=== PATIENT | female | born 2005 | race Caucasian/White ===

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

== ENCOUNTER 2024-11-22 07:23 | Emergency (ER) | payer BC, SELFPAY ==
[2024-11-22] VITALS (8 sets, daily range): BP systolic 113–158; BP diastolic 76–97; PULSE 97–127; RESP 20; TEMP 36.9–37; O2SAT 100
--- NOTE | 2024-11-22 07:38 | ED.GENADUL_ITS ---
Discharge Plan Disposition Patient Disposition: Home Condition: Stable Discharge Details Clinical Impression: N&V (nausea and vomiting) Primary Care Provider: Jaelyn Grewal ED Provider: Alexys Elam Home Meds and New Rx's Prescriptions: New ondansetron 4 mg tablet,disintegrating 4 mg PO Q8H PRN (Reason: nausea and vomiting) Qty: 30 0RF Continued Mirena 20 mcg/24 hours (6 yrs) 52 mg intrauterine device 1 device intrauterine ONCE Qty: 1 0RF albuterol sulfate [ProAir HFA] 90 mcg/actuation HFA aerosol inhaler 2 puff Inhalation Q4H PRN Qty: 1 4RF Rx Instructions: 2 puffs q4h prn cough/wheeze tretinoin 0.1 % cream 1 applic TP QHS Qty: 45 2RF Rx Instructions: Apply thin layer to face once at bedtime, wash off in the am. sertraline 25 mg tablet 25 - 75 mg PO DAILY Qty: 90 0RF Rx Instructions: Take 1 tablet daily for one week then increase to 2 tablets daily for one week then increase to 3 tablets daily ocrelizumab 30 mg/mL solution 300 mg IV ONCE Discharge Instructions Instructions: Nausea and Vomiting, Adult ED Additional Instructions: Follow-up with your primary care provider if not improving within a week If you feel more ill or have new symptoms such as severe abdominal pain or persistent vomiting despite the ondansetron return to the emergency department for reevaluation HPI General Mode of arrival: ambulatory . Date/Time Provider Initiated Documentation: 11/22/24 07:25 . Limitations to Documentation: no limitations . Information obtained by: patient . History of Present Illness 19 year old F presents to the emergency department with the chief complaint of n/v, described as moderate, Patient started experiencing this day(s) (1) and it has been constant. No relieving factors improve symptom(s), No exacerbating factors reported . Patient notes denies fever/chills. Patient did receive the following treatments prior to arrival, none Related Data Home Medications ?Medication ?Instructions ?Recorded ?Confirmed levonorgestrel 21 mcg/24 hr (up to 1 device intrauterine ONCE #1 ea 01/14/21 11/22/24 8 years) 52 mg intrauterine device (Mirena) albuterol sulfate 90 mcg/actuation 2 puff inhalation Q4H PRN ##1 07/01/21 11/22/24 aerosol inhaler (ProAir HFA) ocrelizumab 30 mg/mL intravenous 300 mg IV ONCE 10/11/24 11/22/24 solution sertraline 25 mg tablet 25 - 75 mg (1 - 3 x 25 mg) PO 11/01/24 11/22/24 DAILY #90 tabs tretinoin 0.1 % topical cream 1 applic topical QHS #45 grams 11/01/24 11/22/24 ondansetron 4 mg disintegrating 4 mg PO Q8H PRN nausea and 11/22/24 tablet vomiting #30 tabs Previous Rx's ?Medication ?Instructions ?Recorded levonorgestrel 21 mcg/24 hr (up to 1 device intrauterine ONCE #1 ea 01/14/21 8 years) 52 mg intrauterine device (Mirena) albuterol sulfate 90 mcg/actuation 2 puff inhalation Q4H PRN ##1 07/01/21 aerosol inhaler (ProAir HFA) sertraline 25 mg tablet 25 - 75 mg (1 - 3 x 25 mg) PO 11/01/24 DAILY #90 tabs tretinoin 0.1 % topical cream 1 applic topical QHS #45 grams 11/01/24 ondansetron 4 mg disintegrating 4 mg PO Q8H PRN nausea and 11/22/24 tablet vomiting #30 tabs Allergies Allergy/AdvReac Type Severity Reaction Status Date / Time No Known Allergies Allergy Verified 11/22/24 07:31 General Stated Complaint: Nausea/Vomit/Diar LAURA: 3 Review of Systems All systems reviewed & are unremarkable except as noted in HPI and below Constitutional Constitutional: Denies chills, Denies fever(s) and Denies weakness Cardiovascular Cardiovascular: Denies chest pain and Denies dyspnea Respiratory Respiratory: Denies cough and Denies dyspnea Gastrointestinal Gastrointestinal: Reports abdominal pain, Reports nausea and Reports vomiting Neurologic Neurologic: Denies weakness Exam Const Orientation: alert [facility] Head: normal to inspection Ears: external ears normal General nose exam: external nose normal Mouth: moist mucous membranes Eyes General: appearance normal, both eyes and all related structures Neck Neck: normal visual inspection Resp Effort & Inspection: normal respiratory effort and able to speak in complete sentences Cardio Rate: regular rate GI Palpation: soft and nontender Skin General skin exam: no rashes or lesions noted Neuro General: patient alert and patient oriented x3 Extrem General: normal to inspection Psych Mental Status: mental status grossly normal Course Vital Signs Vital signs: Vital Signs Temperature 36.9 C 11/22/24 07:26 Pulse 100 H 11/22/24 07:26 Respiratory Rate 20 11/22/24 07:26 Blood Pressure 158/97 H 11/22/24 07:26 Pulse Oximetry 100 11/22/24 07:26 Temperature 36.9 C 11/22/24 07:26 Pulse 100 H 11/22/24 07:26 Respiratory Rate 20 11/22/24 07:26 Blood Pressure 158/97 H 11/22/24 07:26 Pulse Oximetry 100 11/22/24 07:26 Oxygen Delivery Method Room Air 11/22/24 07:26 Oxygen Flow Rate 0 11/22/24 07:26 Medical Decision Making 19-year-old female who has a history of MS and gets injections of ocrelizumab at [facility] and had her last injection yesterday and has never had any issues comes in with nausea vomiting since last night and started for the migraine similar to prior migraines. She denies any severe headaches now, no significant abdominal pain although when she vomits she has some epigastric discomfort. Denies any fevers, holding a difficulty breathing, urinary symptoms. She is stable on arrival, she has a soft nontender abdomen, no CVA tenderness, ambulating with normal gait. I suspect either medication reaction versus started a gastroenteritis versus food illness. She has no abdominal tenderness to suggest surgical pathology. Will treat her symptoms with IV antiemetics and check a CBC, CMP and lipase and reassess. Given she has a history of migraines and her headache last night was in the rest of her life doubt hemorrhage do not feel imaging of her head indicated. No fevers no neck stiffness so doubt meningitis. Patient with a potassium of 3.0 but seems to be chronically low. Otherwise unremarkable lab work. She does have a contaminated urine sample but she denies any urinary symptoms so do not feel any repeat collection indicated. She is feeling much better and is sleeping on reassessment and awakens easily to voice. I suspect food illness versus the start of gastroenteritis. I will have her follow-up with her PCP if not improving and return precautions given. She has no abdominal pain so do not feel any imaging of her abdomen indicated and has no head pain. Differential Diagnosis Differential Diagnosis: Gastroenteritis, medication reaction, electrolyte abnormality Medical Records Medical records reviewed: Yes I reviewed the patient's medical records. Lab Data Lab results reviewed: Yes I reviewed the patient's lab results. Quality:SDOH Health Related Social Needs: No Data to Display PFSH All Active Problems (Updated 11/22/24 @ 09:21 by Alexys Elam MD) N&V (nausea and vomiting) (Acute) Multiple sclerosis (Chronic ~2019) followed by [facility] [place] Major depressive disorder (Chronic) Asthma (Chronic) IUD surveillance (Chronic) Mirena IUD placed 01/14/21 Medical History (Updated 11/22/24 @ 09:21 by Alexys Elam MD) Anorexia nervosa Surgical History (Updated 11/01/24 @ 14:54 by Jaelyn Grewal NP) S/P tonsillectomy and adenoidectomy Family History (Updated 11/02/24 @ 09:40 by Cris Mohan) Mother Depression Hypertension Father Hyperlipidemia Obesity Heart disease Hypertension Thyroid disease Sister , 27 from car accident Substance use disorder Asthma Depression Brother Alcohol use disorder Asthma Depression Substance use disorder Maternal Grandfather Parkinsons disease Prostate cancer Maternal Grandmother Diabetes Paternal Grandfather No problems noted. Paternal Grandmother No problems noted. Social History (Updated 11/02/24 @ 11:10 by Cris Mohan) Smoking/Tobacco Use Status: Current-Occasional Tobacco Type: e-cigarettes Tobacco: How many years used: 1 Quit status: has quit before Smoking risk assessment performed?: Yes Alcohol Intake: never Drug use: Occasionally Substance use type: marijuana Details: checked rx usage for more than intended 2-3/week but also checked never Adopted: No Caregiver/Support person: No Household members: significant other Housing: house Number of Children: 0 number of grandchildren: 0 Communication Needs: None Education Level: college Details: [employer] prerequisites for nursing school. 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 [employer] Sexually active: Yes Do you think of yourself as: straight/heterosexual Current gender identity: female What is your relationship status?: living with partner How often do you talk on the phone with friends or family?: three or more times per week How often do you get together with friends or relatives?: twice per week How often do you attend orthodox or restorationist services?: decline to answer Do you belong to any clubs or organized social groups?: no Panel score (0-1 are the most socially isolated patients): 2 NHANES result reviewed/action taken: Yes What type of physical activity do you participate in: walking, bicycling and other Details: hiking Duration: 30-45 minutes/day Frequency: daily Romelia/Mormon: Non caodaism Special romelia needs: No Seatbelt use: always Helmet use: Yes Helmet use: sometimes Drive intox or ride w/intox rolloff truck driver: No Firearms in home: Yes Firearms unloaded and locked: Yes Do you feel safe at home: Yes Do you feel safe in your relationship?: Yes Victim of physical abuse: No Victim of emotional abuse: No Victim of sexual abuse: No Would you like helpful sources: No Female Reproductive History Menstrual control method: progestin IUCD History History 0 Para Hx # Term Pregnancies Multiple births Hx # Pregnancies Ectopic pregnancies AB induced Hx Number of Living Children AB spontaneous
[2024-11-22] MEDS: Prochlorperazine 10 MG/2 ML VIAL IVP (08:13)
[2024-11-22] MEDS: Normal Saline 1,000 ML 1000 ML IV (08:14)
[2024-11-22 08:23] LABS: Abs Immature Grans 0.02 10^3/uL (0.0-0.06); Absolute Basophil Count 0.05 10^3/uL (0.0-0.2); Absolute Eosinophil Count 0.01 10^3/uL (0.0-0.7); Absolute Lymphocyte Count 0.17 10^3/uL (1.2-3.4); Absolute Monocyte Count 0.32 10^3/uL (0.1-0.8); Absolute Neutrophil Count 7.42 10^3/uL (1.2-6.7); Basophils % 0.6 %; Eosinophils % 0.1 %; HCT 45.6 % (36.0-46.0); HGB 14.9 g/dL (11.2-15.7); Immature Grans % 0.3 %; Lymphocytes % 2.1 %; MCHC 32.7 % (32.0-36.0); MCV 79 fL (80-95); MPV 9.3 fL (8.0-11.0); Neutrophils % 92.9 %; Platelet Count 290 10^3/uL (130-400); RBC 5.74 10^6/uL (3.93-5.22); RDW 13.6 % (11.7-14.6); RDW-SD 38.8 fL; WBC 7.99 10^3/uL (4.4-10.8)
[2024-11-22 08:53] LABS: ALT 22 U/L (14-59); AST 19 U/L (15-37); Albumin 4.1 g/dL (3.4-5.0); Alkaline Phosphatase 67 U/L (46-116); Anion Gap 9.2 mmol/L (3-11); BUN 18 mg/dL (7-18); Bilirubin, Total 0.87 mg/dL (0.2-1.0); CO2 31.8 mmol/L (21.0-32.0); CREATININE 1.1 mg/dL (0.55-1.02); Calcium 8.9 mg/dL (8.5-10.1); Chloride 100 mmol/L (98-107); Estimated GFR 73.77 (mL/min/1.73m2); Glucose 92 mg/dL (74-106); Lipase 25 U/L (<78); Magnesium 1.8 mg/dL (1.8-2.4); Sodium 141 mmol/L (136-145); Total Protein 7.1 g/dL (6.4-8.2)
[2024-11-22 09:00] LABS: Bilirubin Negative (Negative); Blood Trace-intact (Negative); Clarity Sl Cloudy (Clear); Glucose Negative (Negative); Ketones Negative (Negative); Leukocyte Esterase Small (Negative); Nitrite Negative (Negative); Specific Gravity >= 1.030 (1.005-1.025); Urobilinogen 0.2 mg/dL (Up to 0.2)
[2024-11-22 09:04] LABS: HCG Qual (Serum) Negative
[2024-11-22 09:15] LABS: Bacteria Many HPF (Negative); Epithelial Cells Many HPF (Negative); Other Cells Negative (Negative); WBC >50 HPF (0-5)
[2024-11-22 09:16] LABS: C & S Indicated? No/Sq. Contamination; Casts Negative LPF (Negative); Crystals Many Calcium Oxalate HPF (Negative); Mucus Heavy (Negative)
== END 2024-11-22 09:55 | disposition home or self-care (01) ==
PROVIDERS: Emergency Provider Emergency Medicine; PCP Nurse Practitioner Family
DX: R11.2 Nausea with vomiting, unspecified (principal); G35 Multiple sclerosis; F17.290 Nicotine dependence, other tobacco product, uncomplicated; Z79.899 Other long term (current) drug therapy
CPT/HCPCS: 36415; 80053; 83690; 96361; 96374; 99284; 81003; 81015; 83735; 84703; 85025; J0780

== ENCOUNTER 2024-12-14 11:47 | Emergency (ER) | payer BC, SELFPAY ==
--- NOTE | 2024-12-14 11:45 | RT.EKG_ITS ---
APPROVED REPORT Exam: Resting ECG Reason for Exam: syncope Patient Location: E HR:94 bpm ECG Measurements Heart Rate 94 AXIS PA 113 P 63 QRSd 72 QRS 72 QT 364 T 14 QTc 456 Conclusion Sinus rhythm. 94 normal axis no stemi
[2024-12-14 11:55] VITALS: BP 123/81; PULSE 83; RESP 15; TEMP 36.7; O2SAT 99
--- NOTE | 2024-12-14 12:15 | DI.RAD_ITS ---
Exam(s) XR KNEE RT 4V AP,LAT,DIANNA,PAT EXAM: XR KNEE RT 4V AP,LAT,DIANNA,PAT CLINICAL HISTORY: Fall onto knee. TECHNIQUE: 2D digital imaging was performed of the right knee. Four views obtained. Merchant, AP, la teral and PA tunnel views were obtained. COMPARISON: No priors for comparison. FINDINGS: BONES: No acute fracture is present. No bony destructive lesion is seen. JOINTS: The knee is normally aligned. No joint effusion is seen. SOFT TISSUE: Normal. IMPRESSION: Unremarkable radiographs of the right knee. DATA REPOSITORY: RADIATION DOSE DELIVERED:
--- NOTE | 2024-12-14 12:28 | W.ED.GENAD ---
Discharge Plan Disposition Patient Disposition: Home Condition: Stable Discharge Details Clinical Impression: Right knee sprain Primary Care Provider: Jaelyn Grewal ED Provider: Radha Bay Home Meds and New Rx's Prescriptions: Continued Mirena 20 mcg/24 hours (6 yrs) 52 mg intrauterine device 1 device intrauterine ONCE Qty: 1 0RF albuterol sulfate [ProAir HFA] 90 mcg/actuation HFA aerosol inhaler 2 puff Inhalation Q4H PRN Qty: 1 4RF Rx Instructions: 2 puffs q4h prn cough/wheeze tretinoin 0.1 % cream 1 applic TP QHS Qty: 45 2RF Rx Instructions: Apply thin layer to face once at bedtime, wash off in the am. sertraline 25 mg tablet 25 - 75 mg PO DAILY Qty: 90 0RF Rx Instructions: Take 1 tablet daily for one week then increase to 2 tablets daily for one week then increase to 3 tablets daily ocrelizumab 30 mg/mL solution 300 mg IV ONCE ondansetron 4 mg tablet,disintegrating 4 mg PO Q8H PRN (Reason: nausea and vomiting) Qty: 30 0RF Discharge Instructions Instructions: Knee Sprain ED Additional Instructions: No evidence of fracture at this time however you could have a mild to moderate sprain. Please wear the knee brace as needed for comfort. Rest ice compression elevation. Please take Tylenol or Ibuprofen with food every 4-6 hours as needed for pain and swelling. If continued pain you may follow-up with orthopedics or your primary care provider in the next 1 to 2 weeks. Follow up with primary care provider in 3-5 days. Return to ED sooner if any worsening or concerns. Thank you for allowing us to care for you today. Referrals: Jaelyn Grewal, [facility] [Primary Care Provider] - 1 week HPI General Mode of arrival: ambulatory. Date/Time Provider Initiated Documentation: 12/14/24 11:58. Limitations to Documentation: no limitations. Information obtained by: patient, RN notes reviewed and old records reviewed. HPI Narrative: 19-year-old female presents to the ER with chief complaint of right 7 out of 10 knee pain after couple of falls over the last month. Patient reports few days ago she slipped on the ice landing on her right knee. She also reports left knee years she became dizzy and lightheaded and was going to the bathroom when she apparently lost consciousness falling on the ground. Ever since then she has had some increased pain with knee flexion mostly to the posterior popliteal fossa. She has no obvious deformity noted on exam. She reports she tried to run yesterday and she had increased pain. She does have a past medical history of anorexia. She denies any chest pain dizziness lightheadedness at this time. EKG was performed by ED staff upon arrival which was within normal limits. Related Data Home Medications ?Medication ?Instructions ?Recorded ?Confirmed levonorgestrel 21 mcg/24 hr (up to 1 device intrauterine ONCE #1 ea 01/14/21 12/14/24 8 years) 52 mg intrauterine device (Mirena) albuterol sulfate 90 mcg/actuation 2 puff inhalation Q4H PRN ##1 07/01/21 12/14/24 aerosol inhaler (ProAir HFA) ocrelizumab 30 mg/mL intravenous 300 mg IV ONCE 10/11/24 12/14/24 solution sertraline 25 mg tablet 25 - 75 mg (1 - 3 x 25 mg) PO 11/01/24 12/14/24 DAILY #90 tabs tretinoin 0.1 % topical cream 1 applic topical QHS #45 grams 11/01/24 12/14/24 ondansetron 4 mg disintegrating 4 mg PO Q8H PRN nausea and 11/22/24 12/14/24 tablet vomiting #30 tabs Previous Rx's ?Medication ?Instructions ?Recorded levonorgestrel 21 mcg/24 hr (up to 1 device intrauterine ONCE #1 ea 01/14/21 8 years) 52 mg intrauterine device (Mirena) albuterol sulfate 90 mcg/actuation 2 puff inhalation Q4H PRN ##1 07/01/21 aerosol inhaler (ProAir HFA) sertraline 25 mg tablet 25 - 75 mg (1 - 3 x 25 mg) PO 11/01/24 DAILY #90 tabs tretinoin 0.1 % topical cream 1 applic topical QHS #45 grams 11/01/24 ondansetron 4 mg disintegrating 4 mg PO Q8H PRN nausea and 11/22/24 tablet vomiting #30 tabs Allergies Allergy/AdvReac Type Severity Reaction Status Date / Time No Known Allergies Allergy Verified 12/14/24 11:59 General Stated Complaint: Orthopedic LAURA: 4 Review of Systems Musculoskeletal Musculoskeletal: Reports as per HPI, Reports arthralgias and Reports limited range of motion (Due to pain) Exam Narrative Exam Narrative: Constitutional: Alert and oriented x3. Appears stated age. Thin body habitus. Head: Normocephalic, no trauma. Eyes: Pupils PERRL, Red reflex noted, EOM's intact. Eyelids symmetrical without lesions, discharge, or swelling. ENT: Bilateral TM's WNL, External ear normal to inspection, no mastoid TTP, swelling, or erythema, Nasal turbinates WNL, no nasal discharge. Normal dentition, Posterior pharynx WNL, no exudate. Chest: RRR, Normal S1, S2, distal pulses intact. Resp: Lungs clear to auscultation bilaterally, no wheezes, rales, or rhonchi. Abdomen: Soft, non-distended, Normoactive bowel sounds all 4 quads. Musculoskeletal: Normal gait, Moves all 4 extremities without difficulty. Skin: No suspicious rashes or lesions. Capillary refill less than 2 sec. Neurologic: Cranial nerves II-XII intact. Alert and oriented x 3. Motor: No deficits noted. Sensory: Intact bilaterally all 4 extremities. Hematologic/Lymphatic: No ecchymosis, no lymphadenopathy. Const General: cooperative, healthy appearing, comfortable, well developed and well groomed Nutritional Appearance: thin Orientation: alert, awake and oriented x3 Extrem General: normal to inspection Right lower extremity: normal to inspection, normal capillary refill, no joint enlargement and knee Details: normal to inspection, tenderness and knee ligament exam normal; no swelling, no crepitus, no deformity and no unusual warmth Course Vital Signs Vital signs: Vital Signs Temperature 36.7 C 12/14/24 11:55 Pulse 83 12/14/24 11:55 Respiratory Rate 15 12/14/24 11:55 Blood Pressure 123/81 12/14/24 11:55 Pulse Oximetry 99 12/14/24 11:55 Temperature 36.7 C 12/14/24 11:55 Pulse 83 12/14/24 11:55 Respiratory Rate 15 12/14/24 11:55 Blood Pressure 123/81 12/14/24 11:55 Blood Pressure Position Sitting 12/14/24 11:55 Pulse Oximetry 99 12/14/24 11:55 Oxygen Delivery Method Room Air 12/14/24 11:55 Oxygen Flow Rate 0 12/14/24 11:55 Medical Decision Making 19-year-old female presents to the ER with chief complaint of right 7 out of 10 knee pain after couple of falls over the last month. Patient reports few days ago she slipped on the ice landing on her right knee. She also reports left knee years she became dizzy and lightheaded and was going to the bathroom when she apparently lost consciousness falling on the ground. Ever since then she has had some increased pain with knee flexion mostly to the posterior popliteal fossa. She has no obvious deformity noted on exam. She reports she tried to run yesterday and she had increased pain. She does have a past medical history of anorexia. She denies any chest pain dizziness lightheadedness at this time. EKG was performed by ED staff upon arrival which was within normal limits. 4 view x-ray of right knee ordered, X-ray within normal limits, will place in a hinged knee brace and discharge home with RICE procedures. Follow-up if continued worsening pain. This text was generated using [employer] dictation system, please disregard any oddities of phrase or misspellings. Medical Records Medical records reviewed: Yes I reviewed the patient's medical records. Imaging Data Radiologic Study: Imaging: X-Ray Radiologist's impression: EXAM: XR KNEE RT 4V AP,LAT,DIANNA,PAT CLINICAL HISTORY: Fall onto knee. TECHNIQUE: 2D digital imaging was performed of the right knee. Four views obtained. Merchant, AP, lateral and PA tunnel views were obtained. COMPARISON: No priors for comparison. FINDINGS: BONES: No acute fracture is present. No bony destructive lesion is seen. JOINTS: The knee is normally aligned. No joint effusion is seen. SOFT TISSUE: Normal. IMPRESSION: Unremarkable radiographs of the right knee. Quality:SDOH Health Related Social Needs: No Data to Display PFSH All Active Problems (Updated 12/14/24 @ 13:37 by Radha Bay NP) Right knee sprain (Acute) N&V (nausea and vomiting) (Acute) Multiple sclerosis (Chronic ~2019) [place] by [facility] [place] [facility] Major depressive disorder (Chronic) Asthma (Chronic) IUD surveillance (Chronic) Mirena IUD placed 01/14/21 Medical History Anorexia nervosa Surgical History S/P tonsillectomy and adenoidectomy Family History Mother Depression Hypertension Father Hyperlipidemia Obesity Heart disease Hypertension Thyroid disease Sister , 27 from car accident Substance use disorder Asthma Depression Brother Alcohol use disorder Asthma Depression Substance use disorder Maternal Grandfather Parkinsons disease Prostate cancer Maternal Grandmother Diabetes Paternal Grandfather No problems noted. Paternal Grandmother No problems noted. Social History Smoking/Tobacco Use Status: Current-Occasional Tobacco Type: e-cigarettes Tobacco: How many years used: 1 Quit status: has quit before Smoking risk assessment performed?: Yes Alcohol Intake: never Drug use: Occasionally Substance use type: marijuana Details: checked rx usage for more than intended 2-3/week but also checked never Adopted: No Caregiver/Support person: No Household members: significant other Housing: house Number of Children: 0 number of grandchildren: 0 Communication Needs: None Education Level: college Details: [employer] prerequisites for nursing school. 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 [employer] Sexually active: Yes Do you think of yourself as: straight/heterosexual Current gender identity: female What is your relationship status?: living with partner How often do you talk on the phone with friends or family?: three or more times per week How often do you get together with friends or relatives?: twice per week How often do you attend buddhism or yazidi services?: decline to answer Do you belong to any clubs or organized social groups?: no Panel score (0-1 are the most socially isolated patients): 2 NHANES result reviewed/action taken: Yes What type of physical activity do you participate in: walking, bicycling and other Details: hiking Duration: 30-45 minutes/day Frequency: daily Romelia/Jehovah'S Witness: Non zoroastrianism Special romelia needs: No Seatbelt use: always Helmet use: Yes Helmet use: sometimes Drive intox or ride w/intox intermodal truck driver: No Firearms in home: Yes Firearms unloaded and locked: Yes Do you feel safe at home: Yes Do you feel safe in your relationship?: Yes Victim of physical abuse: No Victim of emotional abuse: No Victim of sexual abuse: No Would you like helpful sources: No Female Reproductive History Menstrual control method: progestin IUCD History History 0 Para Hx # Term Pregnancies Multiple births Hx # Pregnancies Ectopic pregnancies AB induced Hx Number of Living Children AB spontaneous
[2024-12-14 13:48] VITALS: BP 120/64; PULSE 77; RESP 16; O2SAT 100
== END 2024-12-14 13:49 | disposition home or self-care (01) ==
PROVIDERS: Emergency Provider Registered Nurse Emergency; PCP Nurse Practitioner Family
DX: S83.91XA Sprain of unspecified site of right knee, initial encounter (principal); W00.0XXA Fall on same level due to ice and snow, initial encounter; F17.290 Nicotine dependence, other tobacco product, uncomplicated; Y93.01 Activity, walking, marching and hiking
CPT/HCPCS: 93005; 99283; 73564; 93010

== ENCOUNTER 2024-12-25 15:40 | Outpatient (CLI) | payer BC, SELFPAY ==
--- NOTE | 2024-12-25 14:45 | DI.RAD_ITS ---
Exam(s) XR FOOT RT COMPLETE EXAM: XR FOOT RT COMPLETE CLINICAL HISTORY: right foot pain. TECHNIQUE: 2D digital imaging was performed. Three views. COMPARISON: CR XR FOOT RT LIMITED from 10/30/2019 FINDINGS: BONES: No acute fracture is present. No bony destructive lesion is seen. Arm a dorsal spurs again no ara at the base of the 2nd metatarsal. JOINTS: No dislocation present. SOFT TISSUE: Normal. IMPRESSION: No acute abnormality. DATA REPOSITORY: RADIATION DOSE DELIVERED:
== END 2024-12-25 15:41 | disposition home or self-care (01) ==
LOC: DIORS 15:40
PROVIDERS: PCP Nurse Practitioner Family; Visit Provider Physician Assistant
DX: M79.671 Pain in right foot (principal)
CPT/HCPCS: 73630

== ENCOUNTER 2025-01-18 09:01 | Outpatient (CLI) | payer BC, SELFPAY ==
--- NOTE | 2025-01-18 08:30 | DI.RAD_ITS ---
Exam(s) XR FOOT RT COMPLETE EXAM: XR FOOT RT COMPLETE CLINICAL HISTORY: FOREIGN BODY RIGHT FOOT S90.851A. TECHNIQUE: 2D digital imaging was performed. Three views. COMPARISON: CR XR FOOT RT COMPLETE from 12/25/2024 FINDINGS: BONES: No acute fracture is present. No bony destructive lesion is seen. Of spur from the dorsal asp ect of the 2nd metatarsal. JOINTS: No dislocation present. SOFT TISSUE: Normal. No visible foreign body. No abnormal gas collection. IMPRESSION: Unremarkable radiographs of the right foot. DATA REPOSITORY: RADIATION DOSE DELIVERED:
== END 2025-01-18 09:21 ==
LOC: DI 09:02
PROVIDERS: PCP Nurse Practitioner Family; Visit Provider Student in an Organized Health Care Education/Training Program
DX: S90.851A Superficial foreign body, right foot, initial encounter (principal); X58.XXXA Exposure to other specified factors, initial encounter
CPT/HCPCS: 73630

== ENCOUNTER 2025-06-16 23:23 | Emergency (ER) | payer BC, SELFPAY ==
--- NOTE | 2025-06-16 00:58 | DI.CT_ITS ---
Exam(s) CT ABDOMEN PELVIS W EXAM: CT ABDOMEN PELVIS W CLINICAL HISTORY: LLQ pain, eval for cyst. TECHNIQUE: Imaging Protocol: Axial computed tomography images with coronal and sagittal reformatted images were created and reviewed CONTRAST MATERIAL: Intravenous: Omnipaque-350 75cc Oral: None COMPARISON: CT CT ABDOMEN PELVIS W from 09/18/2020 FINDINGS: VISUALIZED LUNG BASES: No nodules nor pleural effusions evident. ABDOMEN: There is no ascites. LIVER: There are no focal hepatic lesions evident. No dilated intrahepatic ducts. GALLBLADDER/BILIARY: No obvious gallbladder pathology. CBD is not dilated. PANCREAS: No evidence of pancreatic mass nor dilatation of the pancreatic duct. SPLEEN: Spleen is not enlarged. No obvious intrasplenic lesions. Splenic and portal veins are patent. ADRENALS: There are no significant adrenal masses. KIDNEYS:No cysts evident. No solid renal masses. No calculi nor hydronephrosis.. ABDOMINAL AORTA: Abdominal aorta is not enlarged. LYMPH NODES:There is no retroperitoneal nor paraaortic adenopathy. ABDOMINAL WALL: No evidence of significant anterior abdominal wall nor inguinal hernia. Umbilical ornament again noted. There is no evidence of abscess nor hernia at this level. GI: There is no evidence of bowel obstruction, free air, nor abscess. There is abundant fecal material and fluid in the colon from the cecum to the level of the upper sigmoid. The remainder of the sigmoid and rectosigmoid are filled with air. PELVIS: GI: There is no evidence of obvious appendicitis.There is no significant sigmoid diverticular disease. LYMPH NODES: There is no intrapelvic nor inguinal adenopathy. REPRODUCTIVE: There is an IUD now evident in the endometrial canal of the uterus. This appears to be in satisfactory position within the anteverted uterus. There are no significant ovarian masses. There is a very small amount of free fluid in the dependent aspect of the [id number]-flr-rv-sac region. This may be female physiologic. No evidence of abscess. URINARY BLADDER: No calculi nor obvious masses evident OSSEOUS: No fractures and no significant osseous lesions. The sacroiliac joints appear unremarkable. IMPRESSION: 1. Compared to the prior abdominal CT scan of September 2020 there has been interval placement of than intrauterine contraceptive device. IUD appears to be in satisfactory position within the endometrial canal of the anteverted uterus. There are no abnormal adnexal masses. There is a small amount of free fluid in the cul-de-sac which is probably female physiologic. 2. There is fluid and fecal material distending most of the colon but not the sigmoid (which is the air-gas filled). There is no obvious colitis pattern. No evidence of appendicitis nor diverticulitis. Preliminary virtual Radiology report was reviewed RADIATION DOSE DELIVERED: 273.02mGy.cm Total DLP DATA REPOSITORY: All CT scans at this facility are submitted to the National Radiology Data Registry (NRDR) Dose Index Registry (DIR) with the [employer] (ACR). RADIATION OPTIMIZATION: All CT scans at this facility use at least one of these dose optimization techniques: automated exposure control; mA and/or kV adjustment per patient size (includes targeted exams where dose is matched to clinical indication); or iterative reconstruction.
[2025-06-16 23:26] VITALS: BP 106/67; PULSE 101; RESP 20; TEMP 36.9; O2SAT 100
[2025-06-16 23:29] VITALS: BP 106/67; PULSE 101; RESP 20; TEMP 36.9; O2SAT 100
[2025-06-16 23:31] VITALS: BP 100/75; PULSE 98
[2025-06-16 23:32] VITALS: PULSE 97; O2SAT 99
--- NOTE | 2025-06-16 23:37 | W.ED.GENAD ---
Discharge Plan Disposition Patient Disposition: Home Discharge Details Clinical Impression: Constipation, Abdominal cramping Primary Care Provider: Jaelyn Grewal ED Provider: Kaiden Mijares Home Meds and New Rx's Prescriptions: New potassium chloride 40 mEq/15 mL liquid 20 meq PO DAILY 7 Days Qty: 52.5 0RF docusate sodium [Colace] 100 mg capsule 100 mg PO DAILY Qty: 30 0RF No Action Mirena 20 mcg/24 hours (6 yrs) 52 mg intrauterine device 1 device intrauterine ONCE Qty: 1 0RF albuterol sulfate [ProAir HFA] 90 mcg/actuation HFA aerosol inhaler 2 puff Inhalation Q4H PRN Qty: 1 4RF Rx Instructions: 2 puffs q4h prn cough/wheeze ocrelizumab 30 mg/mL solution 300 mg IV ONCE ondansetron 4 mg tablet,disintegrating 4 mg PO Q8H PRN (Reason: nausea and vomiting) Qty: 30 0RF Discharge Instructions Instructions: Constipation in adults, Hypokalemia Additional Instructions: At this time your workup has shown 3 different pain entities. 1) you had notable constipation and stool burden in your intestines which is likely causing your cramping and pain. Please make sure you are drinking 10 to 12 cups of water or electrolyte solution every day. To help relieve the constipation 1 option is taking a full bottle of magnesium citrate, followed by 5 to 6 cups of water or more preferably electrolyte solution. This will cause significant cramping, but should help you produce a bowel movement. Additionally, please take a daily Colace with 2 to 3 cups of water every day when you take it to help maintain good stool softeners. 2) your potassium level was also notably low. We have helped improve your potassium level here through IV potassium, but have also sent a prescription for potassium for home use for the next week. Please stick with a high potassium diet as best you can to prevent this in the future. 3) your kidney function is also been getting slightly worse as time has gone on. This is likely a reflection of dehydration, but can also be made worse by ibuprofen use, or other chronic diseases. Please follow-up closely with primary care provider for reassessment of your kidney function and continued monitoring. If you notice any worsening of your symptoms, or any new symptoms such as vomiting, diarrhea, fever, chills, shortness of breath, chest pain, numbness, weakness, or fainting , please return immediately to the emergency department for reevaluation. Please follow up with your primary care provider as soon as possible for reassessment and reevaluation. As always, it was a pleasure participating in your medical care today. Referrals: Jaelyn Grewal NP [Primary Care Provider, Medicine] HPI General Date/Time Provider Initiated Documentation: 06/16/25 23:27. HPI Narrative: This is a pleasant 19-year-old female with past medical history of multiple sclerosis on ocrelizumab, asthma, intrauterine device use with levonorgestrel who presents today for evaluation of left lower quadrant abdominal pain. Patient states that the pain began 7 hours ago, it is constant in nature but comes and goes in severity oscillating from around a 3 to a 10. This transition is gradual and not sudden. She has nausea but no vomiting. Last bowel movement was 2 days ago which is quite normal for her. She denies any vaginal discharge, vaginal bleeding, or dysuria. No fever or chills. No other complaints at this time. Related Data Home Medications ?Medication ?Instructions ?Recorded ?Confirmed levonorgestrel (Mirena) 1 device intrauterine ONCE #1 ea 01/14/21 06/16/25 albuterol sulfate 90 mcg/actuation 2 puff inhalation Q4H PRN ##1 07/01/21 06/16/25 aerosol inhaler (ProAir HFA) ocrelizumab 30 mg/mL intravenous 300 mg IV ONCE 10/11/24 06/16/25 solution ondansetron 4 mg disintegrating 4 mg PO Q8H PRN nausea and 11/22/24 06/16/25 tablet vomiting #30 tabs docusate sodium 100 mg capsule 100 mg PO DAILY #30 caps 06/17/25 (Colace) potassium chloride 40 mEq/15 mL 20 meq (7.5 mL) PO DAILY 7 days 06/17/25 oral liquid #52.5 mL Previous Rx's ?Medication ?Instructions ?Recorded levonorgestrel (Mirena) 1 device intrauterine ONCE #1 ea 01/14/21 albuterol sulfate 90 mcg/actuation 2 puff inhalation Q4H PRN ##1 07/01/21 aerosol inhaler (ProAir HFA) ondansetron 4 mg disintegrating 4 mg PO Q8H PRN nausea and 11/22/24 tablet vomiting #30 tabs docusate sodium 100 mg capsule 100 mg PO DAILY #30 caps 06/17/25 (Colace) potassium chloride 40 mEq/15 mL 20 meq (7.5 mL) PO DAILY 7 days 06/17/25 oral liquid #52.5 mL Allergies Allergy/AdvReac Type Severity Reaction Status Date / Time No Known Allergies Allergy Verified 06/16/25 23:32 General Stated Complaint: Abd Prob LAURA: 3 Exam Narrative Exam Narrative: 1.Const: Well-nourished, Well-developed, appearing stated age 2.Eyes: PERRL, no conjunctival injection, and symmetrical lids. 3.ENT: Atraumatic external nose and ears. Moist MM. Neck: Symmetric, trachea midline, No thyromegaly. 4.CVS: +S1/S2, Peripheral pulses 2+ and equal in all extremities. Brisk capillary refill in all extremities. 5.RESP: Unlabored respiratory effort. Clear to auscultation bilaterally. No wheezes rales or rhonchi 6.GI: Soft, notable left lower quadrant tenderness. Palpation of the right lower quadrant elicits pain in the left lower quadrant. No focal pain at McBurney's point otherwise, negative Cadet sign. Negative heel strike test. 7.MSK: Normocephalic/Atraumatic, Extremities w/o deformity or ttp No cyanosis or clubbing, Normal movement of all extremities 8.Skin: Warm, Dry. No rashes or lesions. 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 Sensation grossly intact, no focal neurologic deficits. 10.Psych: (AAO) x3. Appropriate mood and affect Course Vital Signs Vital signs: Vital Signs Temperature 36.9 C 06/16/25 23:26 Pulse 101 H 06/16/25 23:26 Respiratory Rate 20 06/16/25 23:26 Blood Pressure 106/67 06/16/25 23:26 Pulse Oximetry 100 06/16/25 23:26 Temperature 36.9 C 06/16/25 23:29 Temperature Source Temporal Artery Scan 06/16/25 23:29 Pulse 101 H 06/16/25 23:29 Respiratory Rate 20 06/16/25 23:29 Blood Pressure 106/67 06/16/25 23:29 Blood Pressure Position Supine 06/16/25 23:29 Pulse Oximetry 100 06/16/25 23:29 Oxygen Delivery Method Room Air 06/16/25 23:29 Oxygen Flow Rate 0 06/16/25 23:26 Pain Level 9 06/16/25 23:29 Medical Decision Making This is a pleasant 19-year-old female with past medical history of multiple sclerosis on ocrelizumab, asthma, intrauterine device use with levonorgestrel who presents today for evaluation of left lower quadrant abdominal pain. Patient states that the pain began 7 hours ago, it is constant in nature but comes and goes in severity oscillating from around a 3 to a 10. This transition is gradual and not sudden. She has nausea but no vomiting. Last bowel movement was 2 days ago which is quite normal for her. She denies any vaginal discharge, vaginal bleeding, or dysuria. No fever or chills. No other complaints at this time. Exam demonstrates notable left lower quadrant tenderness, no flank or CVA tenderness. Negative heel strike test. Differential is high for ovarian cyst. Torsion seems less likely given the nature of the symptoms. We will treat the patient's pain, rehydrate, get CT imaging as no ultrasonography is available at this time. We will monitor closely and reassess. 2:13 AM Laboratory workup shows no significant white count bandemia or left shift. Heart rate has improved after fluids. Electrolytes demonstrate a low potassium at 2.7, with a creatinine of 1.2. Additionally there is a mild decline in her GFR, currently at 66. Lipase is normal, urinalysis shows no infection. I did discuss with her her slightly decreasing renal function. She will follow-up closely with a primary care provider in regards to this. Uncertain as to the cause, but I do recommend avoidance of ibuprofen. On reassessment the patient is feeling improved. Cramping and spasms is notably diminished. CT scan shows evidence of moderate amount of stool in the cecum ascending colon and transverse colon. No other evidence of significant acute process otherwise. The improvement of the patient's pain, but I see no evidence to suggest an acute surgical abdomen. With the patient's low potassium of 2.7 in the setting of a normal magnesium we did give 20 mEq of IV potassium. We will additionally give a prescription for home as well. We did discuss risks and benefits of magnesium citrate for the patient's notable stool content, and she would like to trial oral citrate at home. Patient otherwise feels stable for home. Recommend continued hydration at home. Discussed red flags for which to return. I have extensively reviewed the treatment plan and discharge instructions with the patient. I have addressed all patient concerns at this time. The patient was made aware of what symptoms to monitor for that would warrant a return to the emergency department. Discussed the plan with the patient, they demonstrate verbal understanding and agreement with our assessment and plan at this time. The documentation in this chart was dictated using Learning [employer] dictation software. Please excuse any dictation errors. Intraperitoneal space: Trace fluid in the deep pelvis. No free air. Vasculature: Normal caliber abdominal aorta. Lymph nodes: No pathologically enlarged mesenteric, retroperitoneal, or pelvic sidewall lymph nodes. Urinary bladder: Normal appearing urinary bladder. Reproductive: Anteverted uterus, partially obscured but normal in size. T-shaped intrauterine device in-situ. Ovaries largely obscured and not well evaluated but not grossly enlarged. Bones/joints: No acute fracture seen among the bones of the abdomen or pelvis. Angulation of the sacrum through the S5 segment in keeping with an old tailbone fracture. Soft tissues: No significant ventral or inguinal hernia. IMPRESSION: 1. Fluid and fecal material moderately distending the cecum, ascending colon, transverse colon, and descending colon suggesting diarrhea or impending diarrhea. Clinical correlation recommended. No evidence of diverticulitis or colitis. 2. Trace fluid in the deep pelvis in the cul-de-sac of Damon. Ovaries partially obscured and not well evaluated but grossly normal in size. Thank you for allowing us to participate in the care of your patient. Dictated and Authenticated by: Leo Nails MD 06/17/2025 1:50 AM Eastern Time ([place] & [place]) [facility] All Active Problems (Updated 06/17/25 @ 02:19 by Kaiden Mijares DO) Abdominal cramping (Acute) Constipation (Acute) Multiple sclerosis (Chronic ~2019) followed by [facility] [place] [facility] Major depressive disorder (Chronic) Asthma (Chronic) IUD surveillance (Chronic) Mirena IUD placed 01/14/21 Medical History Anorexia nervosa Surgical History S/P tonsillectomy and adenoidectomy Family History Mother Depression Hypertension Father Hyperlipidemia Obesity Heart disease Hypertension Thyroid disease Sister , 27 from car accident Substance use disorder Asthma Depression Brother Alcohol use disorder Asthma Depression Substance use disorder Maternal Grandfather Parkinsons disease Prostate cancer Maternal Grandmother Diabetes Paternal Grandfather No problems noted. Paternal Grandmother No problems noted. Social History Smoking/Tobacco Use Status: Current-Occasional Tobacco Type: e-cigarettes Tobacco: How many years used: 1 Quit status: has quit before Smoking risk assessment performed?: Yes Alcohol Intake: never Drug use: Occasionally Substance use type: marijuana Details: checked rx usage for more than intended 2-3/week but also checked never Adopted: No Caregiver/Support person: No Household members: significant other Housing: house Number of Children: 0 number of grandchildren: 0 Communication Needs: None Education Level: college Details: [employer] prerequisites for nursing school. 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 Sexually active: Yes Do you think of yourself as: straight/heterosexual Current gender identity: female What is your relationship status?: living with partner How often do you talk on the phone with friends or family?: three or more times per week How often do you get together with friends or relatives?: twice per week How often do you attend protestant or hindu services?: decline to answer Do you belong to any clubs or organized social groups?: no Panel score (0-1 are the most socially isolated patients): 2 NHANES result reviewed/action taken: Yes What type of physical activity do you participate in: walking, bicycling and other Details: hiking Duration: 30-45 minutes/day Frequency: daily Romelia/Jewish: Non gnosticism Special romelia needs: No Seatbelt use: always Helmet use: Yes Helmet use: sometimes Drive intox or ride w/intox non emergency services ambulance driver: No Firearms in home: Yes Firearms unloaded and locked: Yes Do you feel safe at home: Yes Do you feel safe in your relationship?: Yes Victim of physical abuse: No Victim of emotional abuse: No Victim of sexual abuse: No Would you like helpful sources: No Female Reproductive History Menstrual control method: progestin IUCD History History 0 Para Hx # Term Pregnancies Multiple births Hx # Pregnancies Ectopic pregnancies AB induced Hx Number of Living Children AB spontaneous
[2025-06-16 23:51] LABS: Abs Immature Grans 0.02 10^3/uL (0.0-0.06); HCT 37.8 % (36.0-46.0); HGB 12.5 g/dL (11.2-15.7); Immature Grans % 0.3 %; MCH 25.6 pg (27.0-33.0); MCHC 33.1 % (32.0-36.0); MCV 78 fL (80-95); MPV 9.2 fL (8.0-11.0); Platelet Count 336 10^3/uL (130-400); RBC 4.88 10^6/uL (3.93-5.22); RDW 13.3 % (11.7-14.6); RDW-SD 37.6 fL; WBC 7.65 10^3/uL (4.4-10.8)
[2025-06-16] MEDS: Normal Saline 1,000 ML 1000 ML IV (23:53)
[2025-06-16] MEDS: Ondansetron 4 MG/2 ML VIAL IVP (23:54)
[2025-06-16] MEDS: Ketorolac 15 MG/ML VIAL IVP (23:54)
[2025-06-16] MEDS: ACETAMINOPHEN 1,000 MG/100 ML BAG 400 MG IVPB (23:54)
[2025-06-16] MEDS: MORPHine 4 MG/ML SYR IVP (23:55)
[2025-06-17 00:16] LABS: Glucose Negative (Negative)
[2025-06-17 00:17] LABS: ALT 29 U/L (14-59); AST 25 U/L (15-37); Albumin 4.0 g/dL (3.4-5.0); Alkaline Phosphatase 87 U/L (46-116); Anion Gap 6.3 mmol/L (3-11); BUN 10 mg/dL (7-18); Bilirubin, Total 0.4 mg/dL (0.2-1.0); CO2 36.7 mmol/L (21.0-32.0); Calcium 8.9 mg/dL (8.5-10.1); Chloride 95 mmol/L (98-107); Estimated GFR 66.46 (mL/min/1.73m2); Glucose 82 mg/dL (74-106); Lipase 36 U/L (<78); Sodium 138 mmol/L (136-145); Total Protein 6.3 g/dL (6.4-8.2)
[2025-06-17 00:18] LABS: Potassium 2.7 mmol/L (3.5-5.1)
[2025-06-17 00:32] VITALS: PULSE 87; RESP 25; O2SAT 100
[2025-06-17 00:40] VITALS: PULSE 82; RESP 18
[2025-06-17] MEDS: Omnipaque 350 MG/ML 100 ML BTL 75 ML IJ (00:40)
[2025-06-17] MEDS: Normal Saline - Diluent 50 ML VIAL IJ (00:40)
[2025-06-17] MEDS: POTASSIUM CHLORIDE 20 MEQ/100 ML BAG 50 MEQ IV_INF (01:02)
[2025-06-17] MEDS: Normal Saline 1,000 ML 1000 ML IV (01:05)
--- NOTE | 2025-06-17 01:51 | DI.VRAD_ITS ---
PROCEDURE INFORMATION: Exam: CT Abdomen And Pelvis With Contrast Exam date and time: 06/17/2025 12:39 AM Age: 19 years old Clinical indication: Other: Llq pain, eval for cyst TECHNIQUE: Imaging protocol: Computed tomography of the abdomen and pelvis with contrast. Contrast material: OMNIPAQUE 350; Contrast volume: 75 ml; Contrast route: INTRAVENOUS (IV); COMPARISON: CT ABDOMEN PELVIS W 09/18/2020 8:57 PM FINDINGS: Limitations: Extreme paucity of intra-abdominal fat with limited differentiation of normal anatomic structures. Diaphragm: Small hiatal hernia. Liver: Normal appearing liver. Gallbladder and biliary ducts: Distended gallbladder. No calcified gallstones. No biliary dilatation. Pancreas: Normal appearing pancreas. Spleen: Normal appearing spleen. Adrenal glands: Adrenal glands partially obscured but grossly unremarkable, as seen. Kidneys and ureters: Normal appearing kidneys. No hydronephrosis. Stomach and bowel: Stomach largely decompressed. No small bowel dilatation to suggest obstruction. Fluid and fecal material moderately distending the cecum, ascending colon, transverse colon, and descending colon suggesting diarrhea or impending diarrhea. Sigmoid colon and rectum moderately distended with gas. No evidence of diverticulitis or colitis. Appendix: Appendix partially obscured but normal in caliber and appearance through its visualized portion. Intraperitoneal space: Trace fluid in the deep pelvis. No free air. Vasculature: Normal caliber abdominal aorta. Lymph nodes: No pathologically enlarged mesenteric, retroperitoneal, or pelvic sidewall lymph nodes. Urinary bladder: Normal appearing urinary bladder. Reproductive: Anteverted uterus, partially obscured but normal in size. T-shaped intrauterine device in-situ. Ovaries largely obscured and not well evaluated but not grossly enlarged. Bones/joints: No acute fracture seen among the bones of the abdomen or pelvis. Angulation of the sacrum through the S5 segment in keeping with an old tailbone fracture. Soft tissues: No significant ventral or inguinal hernia. IMPRESSION: 1. Fluid and fecal material moderately distending the cecum, ascending colon, transverse colon, and descending colon suggesting diarrhea or impending diarrhea. Clinical correlation recommended. No evidence of diverticulitis or colitis. 2. Trace fluid in the deep pelvis in the cul-de-sac of Damon. Ovaries partially obscured and not well evaluated but grossly normal in size. Dictated and Authenticated by: Leo Nails MD. Orderin Maryana Richey MD
[2025-06-17] MEDS: Magnesium Citrate 300 ML BTL PO (03:08)
[2025-06-17 03:13] VITALS: BP 104/68; PULSE 82; RESP 18; O2SAT 100
--- NOTE | 2025-06-19 10:51 | NUR.NOTE ---
Nursing Note: Patient called stating that the pharmacy told her that they did not receive the prescription that was sent in a few days ago. I reviewed her discharge and the provider sent in Colace and Potassium to [facility] in [place]. I verified that this was the correct pharmacy and then called them. They told me that they found the potassium and the patient had just left there with it. They also said that they did receive the order for the colace but the insurance will not cover it. I called the patient back and instructed the patient to buy the medication OTC. He prescribed it as 100 mg and take one tab daily so I instructed her to buy the 100 mg and take one tab daily and instructed. The patient is going to go back and buy the colace over the counter.
== END 2025-06-17 03:14 | disposition home or self-care (01) ==
PROVIDERS: Emergency Provider Student in an Organized Health Care Education/Training Program; PCP Nurse Practitioner Family
DX: K59.00 Constipation, unspecified (principal); R10.32 Left lower quadrant pain; G35 Multiple sclerosis; F17.290 Nicotine dependence, other tobacco product, uncomplicated; Z79.69 Long term (current) use of other immunomodulators and immunosuppressants
CPT/HCPCS: 36415; 80053; 81025; 83690; 96361; 96365; 96366; 96367; 96375; 99285; 74177; 81003; 83605; 85025; J0131; J1885; J2270; J2405; J3480; J3490

== ENCOUNTER 2025-09-10 09:07 | Day surgery (SDC) | payer BC, SELFPAY ==
[2025-09-10 09:10] VITALS: BP 125/91; PULSE 103; RESP 22; TEMP 36.5; O2SAT 100
[2025-09-10] MEDS: Lactated Ringers 1,000 ML 80 ML IV (09:42)
--- NOTE | 2025-09-10 10:01 | W.ANESPRE ---
General Info Date of Service Date Performed: 09/10/25 Height: 5 ft 6 in Weight: 53.2 kg Body Mass Index (BMI): 18.9 Surgical Procedure: Operation Date: 09/10/25 10:50 Proposed Procedure Side Surgeon lena Espinosa MD Meds Allergies and Home Medications Allergies Allergy/AdvReac Type Severity Reaction Status Date / Time No Known Allergies Allergy Verified 09/10/25 09:27 Home Medication ?Medication ?Instructions ?Recorded levonorgestrel (Mirena) 1 device intrauterine ONCE #1 ea 01/14/21 albuterol sulfate 90 mcg/actuation 2 puff inhalation Q4H PRN ##1 07/01/21 aerosol inhaler (ProAir HFA) ocrelizumab 30 mg/mL intravenous 300 mg IV ONCE 10/11/24 solution linaclotide 145 mcg capsule 145 mcg PO DAILY #14 caps 08/08/25 (Linzess) [id number] 27 1 tab PO DAILY 08/08/25 mg-0.4 mg tablet (Women's Daily Formula) Current Visit Medications: Current Medications Generic Name Dose Route Start Last Admin Trade Name Freq PRN Reason Stop Dose Admin Ringer's Solution 1,000 mls @ 80 mls/hr 09/10/25 06:00 09/10/25 09:42 IV 09/10/25 23:59 80 mls/hr INFUSION SURINDER Administration IV Miscellaneous Supplies 1 each 09/10/25 06:00 Iv Access IV 09/10/25 23:59 DIRECTED SURINDER Sodium Chloride 0 ml 09/10/25 06:00 Normal Saline Flush 10 Ml Syr IV 09/10/25 23:59 PRN PRN Sodium Chloride 0 ml 09/10/25 06:00 Normal Saline 10 Ml Vial IJ 09/10/25 23:59 DIRECTED PRN Sterile Water 0 ml 09/10/25 06:00 Water,Injection,Sterile 10 Ml Vial IJ 09/10/25 23:59 DIRECTED PRN PFSH Active Problems Active Problems: Problem Status Onset Code Irritable bowel syndrome with constipation Acute K58.1 Multiple sclerosis Chronic ~2019 G35 Urinary frequency Acute R35.0 Major depressive disorder Chronic F32.9 Asthma Chronic J45.909 IUD surveillance Chronic Z30.431 Medical History Medical History Anorexia nervosa Surgical History Surgical History S/P tonsillectomy and adenoidectomy Tobacco Smoking/Tobacco Use Status: Current-Occasional Tobacco Type: e-cigarettes Passive smoking exposure: No Alcohol Alcohol Intake: never Substance Use Substance use: Occasionally Substance use type: marijuana Prental History History 0 Para Hx # Term Pregnancies Multiple births Hx # Pregnancies Ectopic pregnancies AB induced Hx Number of Living Children AB spontaneous Vital Signs and Lab Results Vital Signs Most Recent Vital Signs in EMR: Most Recent Vital Signs Temp Pulse Resp BP Pulse Ox 36.5 C 103 H 22 125/91 H 100 09/10/25 09:10 09/10/25 09:10 09/10/25 09:10 09/10/25 09:10 09/10/25 09:10 Point of Care Results Point of Care Results: POC- Test(urine) Negative 09/10/25 09:33 Anesthesia Assessment and Plan Anesthesia History Personal History: No History of Anesthesia Complications Family History: No Family History of Anesthesia Complications Exercise Tolerance Exercise Tolerance: Metabolic Equivalents>4 Cardiac & Pulmonary Exam Cardiac Exam: Normal S1/S2 Heart Sounds Pulmonary Exam: Clear Bilateral Breath Sounds Implantable Cardiac Device Does patient have a Pacemaker or an ICD?: No Airway Exam Known Difficult Airway: No Mallampati Class: 1 Mouth Opening: Normal (> 3cm) Thyromental Distance: Greater than 3 cm Neck Range of Motion: Full ROM Neck Circumference: Normal Teeth Condition: Normal Dentition ASA Classification ASA Score: ASA 2 Emergency Case?: No NPO Status NPO Status: NPO Clears >2 hours, Solids >8 hours Status Status: Negative HCG Anesthesia Plan Resuscitation Status: Full Code Anesthesia Technique: General Anesthesia Airway Planned: Natural Airway Monitors Used: Standard Monitors Preoperative Comments:: 20 yo for colo. Sig PMHx: asthma (albuterol), depression, MS (Ocrelizumab), IBS (Linzess). E-cig, occ cannabis.
[2025-09-10 10:04] VITALS: BMI 18.9
--- NOTE | 2025-09-10 10:41 | W.PM.HP.N ---
Date of service: 09/10/25 Time of Service: 10:41 Assessment and Plan Assessment and plan (1) Irritable bowel syndrome with constipation: Status: Acute Assessment and plan: proceed with colonoscopy today as planned. Discussion about risks, benefits, alternatives and expectations reviewed in office and consents signed. No concerns or questions today. (2) Rectal bleeding: Status: Acute History of Present Illness History of Present Illness Chief Complaint: colonoscopy Narrative: 20yo F with abd pain and constipation, some rectal bleeding. Here for scheduled elective colonoscopy to evaluate. HPI from office visit in july is as follows for reference. No interval changes. The patient is a 20-year-old female here to see me for constipation. She was referred by her primary provider for colonoscopy. She has had a very difficult time having bowel movements for at least 3 years. She was diagnosed with multiple sclerosis in 2019 and that led to depression. During her depression she began to abstain from eating and says that that led her down a path to anorexia and laxative use. She says that she worries she abused laxatives so much that now they do not work on her and she worries they may have caused a problem in her colon. She has had difficulty emptying her colon since that time. She goes 2 weeks between bowel movements. When she finally has a bowel movement it is typically small and skinny and unsatisfying. The stool caliber is small despite a very full feeling in the rectum. She feels like she is unable to empty her bladder as well. She has small frequent urination and always feels like she is full. She says that she will spend up to 30 minutes a day on the toilet in a frog-leg position and trying to help evacuate stools. She has not tried suppositories at home but has tried fiber supplements and MiraLAX and stool softeners. Nothing seems to help get her to have a normal bowel movement. She responds somewhat to MiraLAX though it caused a significant amount of cramping and took 3 doses before it worked. She has been instructed to take stool softener and MiraLAX at the same time. She feels she eats healthy now including a lot of fruits and vegetables and berries. She eats high-protein diet as well. She has had some rectal bleeding associated with spending long time on the toilet. She thinks this is probably due to hemorrhoid bleeding from pushing to have a bowel movement. She has diffuse abdominal cramping when its time to have a bowel movement. She is not sure if her stools are dry or bulky but knows that her rectum feels full and she has difficulty emptying the rectum. She went to the emergency department with severe abdominal cramping and had a CAT scan of the abdomen pelvis done. This showed a large fecal burden in the cecum transverse and descending colon. [facility] All Active Problems (Updated 09/10/25 @ 10:43 by Milagros Espinosa MD) Rectal bleeding (Acute) Irritable bowel syndrome with constipation (Acute) Multiple sclerosis (Chronic ~2019) followed by [facility] [place] Neurology Urinary frequency (Acute) Major depressive disorder (Chronic) Asthma (Chronic) IUD surveillance (Chronic) Mirena IUD placed 01/14/21 Medical History Anorexia nervosa Surgical History S/P tonsillectomy and adenoidectomy Family History Mother Depression Hypertension Father Hyperlipidemia Obesity Heart disease Hypertension Thyroid disease Sister , 27 from car accident Substance use disorder Asthma Depression Brother Alcohol use disorder Asthma Depression Substance use disorder Maternal Grandfather Parkinsons disease Prostate cancer Maternal Grandmother Diabetes Paternal Grandfather No problems noted. Paternal Grandmother No problems noted. Social History Smoking/Tobacco Use Status: Current-Occasional Tobacco Type: e-cigarettes Tobacco: How many years used: 1 Quit status: has quit before Smoking risk assessment performed?: Yes Alcohol Intake: never Drug use: Occasionally Substance use type: marijuana Adopted: No Caregiver/Support person: No Household members: significant other Housing: house Number of Children: 0 number of grandchildren: 0 Communication Needs: None Education Level: college Details: [employer] prerequisites for nursing school. 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 Sexually active: Yes Do you think of yourself as: straight/heterosexual Current gender identity: female What is your relationship status?: living with partner How often do you talk on the phone with friends or family?: three or more times per week How often do you get together with friends or relatives?: twice per week How often do you attend taoism or moravian services?: decline to answer Do you belong to any clubs or organized social groups?: no Panel score (0-1 are the most socially isolated patients): 2 NHANES result reviewed/action taken: Yes What type of physical activity do you participate in: walking, bicycling and other Details: hiking Duration: 30-45 minutes/day Frequency: daily Romelia/Adventism: Non mormon Special romelia needs: No Seatbelt use: always Helmet use: Yes Helmet use: sometimes Drive intox or ride w/intox construction driver: No Firearms in home: Yes Firearms unloaded and locked: Yes Do you feel safe at home: Yes Do you feel safe in your relationship?: Yes Victim of physical abuse: No Victim of emotional abuse: No Victim of sexual abuse: No Would you like helpful sources: No Female Reproductive History Menstrual control method: progestin IUCD History History 0 Para Hx # Term Pregnancies Multiple births Hx # Pregnancies Ectopic pregnancies AB induced Hx Number of Living Children AB spontaneous Meds Allergies and Home Medications Allergies Allergy/AdvReac Type Severity Reaction Status Date / Time No Known Allergies Allergy Verified 09/10/25 09:27 Home Medications ?Medication ?Instructions ?Recorded ?Confirmed ?Type levonorgestrel (Mirena) 1 device intrauterine ONCE #1 ea 01/14/21 09/07/25 Rx albuterol sulfate 90 mcg/actuation 2 puff inhalation Q4H PRN ##1 07/01/21 09/10/25 Rx aerosol inhaler (ProAir HFA) ocrelizumab 30 mg/mL intravenous 300 mg IV ONCE 10/11/24 09/07/25 History solution linaclotide 145 mcg capsule 145 mcg PO DAILY #14 caps 08/08/25 09/07/25 Rx (Linzess) [id number]-Xz-bxtm-minerals 27 1 tab PO DAILY 08/08/25 09/10/25 History mg-0.4 mg tablet (Women's Daily Formula) Exam Narrative Exam Narrative: awake, NAD eomi, MMM midline trachea, neck is symmetric PULM: normal resp effort, equal chest rise with respiration, no wheezing audible CARDIAC: normal PMI, no jvd, regular rate, normal perfusion abdomen is nondistended. extremities are without deformity, normal movement of all four extremities speech is clear and coherent mood and affect are congruent, no focal neurological deficits skin without rash Results Last Vital Signs Temp 97.7 F 09/10/25 09:10 Pulse 103 H 09/10/25 09:10 Resp 22 09/10/25 09:10 BP 125/91 H 09/10/25 09:10 Pulse Ox 100 09/10/25 09:10 Time Spent Time spent with Patient: <40 minutes Time was spent: preparing to see the patient(eg.review tests), counseling the patient and care coordination
--- NOTE | 2025-09-10 10:51 | W.PM.DSUDISC ---
Date of service: 09/10/25 Discharge Plan Disposition Patient Disposition: Home Condition: Stable Discharge Details Attending Provider: Milagros Espinosa Primary Care Provider: Jaelyn Grewal Home Meds and New Rx's Prescriptions: New Linzess 145 mcg capsule 145 mcg PO QAM Qty: 14 0RF Continued Mirena 20 mcg/24 hours (6 yrs) 52 mg intrauterine device 1 device intrauterine ONCE Qty: 1 0RF albuterol sulfate [ProAir HFA] 90 mcg/actuation HFA aerosol inhaler 2 puff Inhalation Q4H PRN Qty: 1 4RF Rx Instructions: 2 puffs q4h prn cough/wheeze Women's Daily Formula 27-0.4 mg tablet 1 tab PO DAILY ocrelizumab 30 mg/mL solution 300 mg IV ONCE Discontinued Linzess 145 mcg capsule 145 mcg PO DAILY Qty: 14 0RF Patient Comments: never picked up script Discharge Instructions Additional Instructions: Normal colonoscopy. Bleeding likely from hemorrhoids related to constipation. Constipation is consistent with IBS-C. Linzess 145mcg prescribed. Start and follow up in office. Next colonoscopy will be due at age 44 for screening. Activity:: Activity as Tolerated Diet:: As Tolerated Discharge Orders Discharge Orders: Discharge Order (Routine); Ordered 09/10/25 Ordered By: Milagros Espinosa DS: Diagnosis Discharge Diagnosis (1) Irritable bowel syndrome with constipation: Status: Acute (2) Rectal bleeding: Status: Acute
--- NOTE | 2025-09-10 10:57 | W.COLOREPORT ---
Date of service: 09/10/25 Time of Service: 11:11 Colonoscopy Report Date of procedure: 09/10/25 Pre-op diagnosis general: constipation, rectal bleeding Post-op diagnosis procedure note: same Procedure: Colonoscopy Surgeon: Milagros Espinosa Anesthesia Type: General:No Airway Estimated blood loss (mL): 0 Pathology: none sent Complications: None Indications: constipation, rectal bleeding Prep: Miralax/Dulcolax (excellent) Procedure Description: Informed consent was obtained and the patient was taken to the procedure area. The patient was placed in left lateral decubitus position on the procedure table. Timeout was performed. Anesthesia was induced. A lubricated colonoscope was inserted through the anus and passed to the cecum. The cecum was identified by the ileocecal valve and the appendiceal orifice. The scope was then slowly withdrawn and the colonic and rectal mucosa examined. TI intubated and examined. It appears normal. There are no colon or rectal mass lesions, polyps, AVMs. There is no inflammatory change. No diverticulosis was seen. The scope was retroflexed in the anorectal junction examined. Uncomplicated internal hemorrhoids present. Assessment and plan: Constipation rectal bleeding Normal colonoscopy. Bleeding likely from hemorrhoids related to constipation. Consistent with IBS-C. Linzess 145mcg prescribed. Start and follow up in office. Next colonoscopy will be due at age 44 for screening.
[2025-09-10 11:16] VITALS: BP 98/66; PULSE 75; RESP 16; TEMP 36.2; O2SAT 99
[2025-09-10 11:45] VITALS: BP 116/95; PULSE 71; RESP 16; TEMP 36.4; O2SAT 100
--- NOTE | 2025-09-11 16:47 | W.ANESPOSTOP ---
Postoperative Evaluation Date, Time and Location Date Performed: 09/10/25 Time Performed: 11:45 Patient Location: Day Surgery Unit Vital Signs Most Recent Imported Vital Signs: Most Recent Vital Signs Temp Pulse Resp BP Pulse Ox 36.4 C L 71 16 116/95 H 100 09/10/25 11:45 09/10/25 11:45 09/10/25 11:45 09/10/25 11:45 09/10/25 11:45 Pain Score Most Recent Pain Score: Most Recent Pain Score Pain Level 0 09/10/25 11:45 Assessment Mental Status: Awake (Alert & Oriented to Patient Baseline) Airway and Respiratory Function: Patent airway with normal (patient baseline) respiratory exam Cardiovascular Function: Hemodynamically Stable Hydration Status: Adequately Hydrated Nausea & Vomiting: No Nausea or Vomiting Pain: Pt. Denies Any Pain Peripheral Nerve Block: Patient did not receive a nerve block
== END 2025-09-10 11:51 | disposition home or self-care (01) ==
PROVIDERS: PCP Nurse Practitioner Family; Visit Provider Surgery
PROC: 0DJD8ZZ Inspection of Lower Intestinal Tract, Via Natural or Artificial Opening Endoscopic (ICD-10-PCS; CPT 45378; principal; 2025-09-10 10:45)
DX: K58.1 Irritable bowel syndrome with constipation (principal); K62.5 Hemorrhage of anus and rectum; J45.909 Unspecified asthma, uncomplicated; K64.8 Other hemorrhoids
CPT/HCPCS: 45378; 81025; J2704